=== PATIENT | male | born 1965 | race Caucasian/White ===

== ENCOUNTER → 2025-01-28 | Day surgery (SDC) | payer BC ==
[~2025-01-28] MED LIST: Propofol 200 MG/20 ML SDV ONE; fentaNYL 100 MCG/2 ML SDV ONE
[2025-01-28] MEDS: Lactated Ringers 1,000 ML IV SCH (07:28)
== END ==
LOC: VM.SDS 07:13
PROVIDERS: ATTEND Family Medicine
DX: Z12.11 Encounter for screening for malignant neoplasm of colon (principal); D12.8 Benign neoplasm of rectum; K63.89 Other specified diseases of intestine; K57.30 Diverticulosis of large intestine without perforation or abscess without bleeding; I10 Essential (primary) hypertension; E66.01 Morbid (severe) obesity due to excess calories; E11.9 Type 2 diabetes mellitus without complications; Z79.82 Long term (current) use of aspirin; Z79.84 Long term (current) use of oral hypoglycemic drugs; Z68.42 Body mass index [BMI] 45.0-49.9, adult; Z79.899 Other long term (current) drug therapy
CPT/HCPCS: 00811; 82947; J2704; J3010; J7120